=== PATIENT | female | born 1945 | race Caucasian/White ===

== ENCOUNTER → 2019-07-03 | Outpatient (CLI) | payer MEDICARE ==
[~2019-07-03] MED LIST: ACET500T64 PO; ALPR0.5T7 PO; ASPI325T17 PO; CALC400T6 PO; CAND4TAB3 PO; CHOL2000 PO; CHOL20002 PO; CYAN50002 PO; DABI150C PO; DICL75TA3 PO; DOCU-180 PO; ENOX100S5 SQ; GABAPENTIN PO; IRBE75TA10 PO; LISI5TAB7 PO; MAGN500C9 PO; METF500T17 PO; METO-93 PO; METO25TA35 PO; MULT1TAB9 PO; NIAC500T4 PO; NIAC500T9 PO; OMEG500C3 PO; OXYB10TA2 PO; OXYB15TA PO; OXYB5TAB10 PO; OXYC5TAB3 PO; RIVA20TA PO; SERT25TA3 PO; SIMV40TA3 PO
[2019-07-03 10:48] LABS: BASOPHILS # (AUTO) 0.02 x10^3/uL (0-0.1); BASOPHILS % (AUTO) 0 % (0-1); EOSINOPHILS # (AUTO) 0.17 x10^3/uL (0-0.4); EOSINOPHILS % (AUTO) 3 % (1-7); LYMPHOCYTES # (AUTO) 1.75 x10^3/uL (1-3.4); LYMPHOCYTES % (AUTO) 27 % (22-44); MD NO; MEAN CORPUSCULAR HEMOGLOBIN 30.9 pg (27.0-34.8); MEAN CORPUSCULAR HGB CONC 33.3 g/dL (32.4-35.8); MEAN CORPUSCULAR VOLUME 92.8 fL (80-100); MEAN PLATELET VOLUME 8.4 fL (7.4-10.4); MONOCYTES # (AUTO) 0.46 x10^3/uL (0.2-0.8); MONOCYTES % (AUTO) 7 % (2-9); NEUTROPHILS # (AUTO) 4.03 x10^3/uL (1.8-6.8); NEUTROPHILS % (AUTO) 63 % (42-75); PLATELET COUNT 324 x10^3/uL (130-400); RED BLOOD COUNT 4.71 x10^6/uL (3.82-5.3); RED CELL DISTRIBUTION WIDTH 13.1 % (9.6-15.2)
[2019-07-03 10:58] LABS: ALANINE AMINOTRANSFERASE 14 U/L (12-78); ALBUMIN 3.7 g/dL (3.4-5.0); ANION GAP 6 mmol/L (5-15); CALCIUM 8.8 mg/dL (8.5-10.1); CHLORIDE 111 mmol/L (98-107); CREATININE 0.98 mg/dL (0.55-1.02)
[2019-07-03 11:00] LABS: ALKALINE PHOSPHATASE 84 U/L (45-117); BILIRUBIN,TOTAL 0.6 mg/dL (0.2-1.0); TOTAL PROTEIN 6.8 g/dL (6.4-8.2)
== END | disposition home or self-care (01) ==
LOC: STAR 09:40
PROVIDERS: ATTEND Orthopaedic Surgery
DX: Z01.818 Encounter for other preprocedural examination (principal); M17.11 Unilateral primary osteoarthritis, right knee
CPT/HCPCS: 36415; 80053; 85025; 87081; 93005

== ENCOUNTER 2019-07-15 09:27 | Day surgery (SDC) | payer MEDICARE ==
[~2019-07-15] VITALS: Ht 175.3 cm; Wt 120.1 kg
[~2019-07-15 09:27] MED LIST changes: -IRBE75TA10 PO; +IRBE75TA6 PO; +NIAC-17 PO; -NIAC500T4 PO; -OXYB10TA2 PO; +OXYB10TA26 PO; -OXYB15TA PO; +OXYB15TA18 PO; +SIMV40TA20 PO; -SIMV40TA3 PO
[2019-07-15] MEDS ORDERED: LACTATED RINGERS 1,000 ML IV SCH (09:49)
[2019-07-15 09:53] VITALS: BP 122/80
[2019-07-15] MEDS ORDERED: ROPIvacaine/PF 0.2%, 20 ML ONE ×3 (09:55→10:35)
[2019-07-15] MEDS ORDERED: FENTANYL PF 250 MCG/5ML ONE ×2 (09:55→11:24)
[2019-07-15] MEDS ORDERED: PROPOFOL 50 ML ONE (09:56)
[2019-07-15] MEDS ORDERED: GABAPENTIN 300 MG CAPSULE PO ONE (10:30)
[2019-07-15] MEDS ORDERED: ACETAMINOPHEN 500 MG TABLET PO ONE (10:30)
[2019-07-15] MEDS ORDERED: EPINEPHRINE 1 MG/ML, 1ML ONE (10:35)
[2019-07-15] MEDS ORDERED: KETOROLAC 60 MG/2 ML ONE (10:35)
[2019-07-15] MEDS ORDERED: VANCOMYCIN 1,000 MG ONE (10:35)
[2019-07-15] MEDS ORDERED: TRANEXAMIC ACID 100 MG/ML, 10ML ONE (10:35)
[2019-07-15] MEDS ORDERED: PHENYLEPHRINE 10 MG/ML ONE (10:56)
[2019-07-15] MEDS ORDERED: HYDROmorphone 2 MG/ML, 1ML IVPush PRN (11:00)
[2019-07-15] MEDS ORDERED: HALOPERIDOL 5 MG/ML IV PRN (11:00)
[2019-07-15] MEDS ORDERED: PROMETHAZINE 25 MG/ML, 1ML IV PRN (11:00)
[2019-07-15] MEDS ORDERED: MORPHINE SULFATE 4 MG/ML, 1ML IVPush PRN (11:00)
[2019-07-15] MEDS ORDERED: LABETALOL 5MG/ML, 20ML IV PRN (11:00)
[2019-07-15] MEDS ORDERED: MEPERIDINE/PF 25MG/ML,1ML IVPush PRN (11:00)
[2019-07-15] MEDS ORDERED: OXYcodone 5 MG/5 ML ORAL.SOL UDC PO PRN (11:00)
[2019-07-15] MEDS ORDERED: ACETAMINOPHEN 325 MG TABLET PO PRN (11:00)
[2019-07-15] MEDS ORDERED: hydrALAzine 20 MG/ML, 1ML IV PRN (11:00)
[2019-07-15] MEDS ORDERED: CEFAZOLIN 1,000 MG ONE (11:23)
[2019-07-15] MEDS ORDERED: ROCURONIUM 10MG/ML,5ML ONE (11:23)
[2019-07-15] MEDS ORDERED: NEOSTIGMINE 1 MG/ML, 10ML ONE (11:23)
[2019-07-15] MEDS ORDERED: PROPOFOL 10 MG/ML, 20ML ONE (11:23)
[2019-07-15] MEDS ORDERED: ONDANSETRON 2MG/ML, 2ML ONE (11:23)
[2019-07-15] MEDS ORDERED: DEXAMETHASONE 4 MG/ML, 1ML ONE (11:23)
[2019-07-15] MEDS ORDERED: GLYCOPYRROLATE 0.2MG/1ML, 5ML ONE (11:23)
[2019-07-15] MEDS: SODIUM CHLORIDE 0.9% 1,000 ML IV SCH (12:23)
[2019-07-15] MEDS ORDERED: BISACODYL 10 MG SUPP PR PRN (12:30)
[2019-07-15] MEDS ORDERED: PROMETHAZINE 12.5 MG SUPP PR PRN (12:30)
[2019-07-15] MEDS: KETOROLAC 30 MG/1 ML IV SCH ×2 (12:30→21:44)
[2019-07-15] MEDS ORDERED: ALUMINUM/MAG/SIMETHICONE 30 ML UDC PO PRN (12:30)
[2019-07-15] MEDS ORDERED: DIPHENHYDRAMINE 25 MG CAPSULE PO PRN (12:30)
[2019-07-15] MEDS ORDERED: ONDANSETRON 4 MG TABLET PO PRN (12:30)
[2019-07-15] MEDS ORDERED: SENNA/DOCUSATE TABLET PO PRN (12:30)
[2019-07-15] MEDS ORDERED: POLYETHYLENE GLYCOL 17 GM PACKET PO PRN (12:30)
[2019-07-15] MEDS ORDERED: PSYLLIUM PACKET PO PRN (12:30)
[2019-07-15] MEDS ORDERED: DIAZEPAM 5 MG TABLET PO PRN (12:30)
[2019-07-15] MEDS ORDERED: ZOLPIDEM 5MG TABLET PO PRN (12:30)
[2019-07-15] MEDS ORDERED: ONDANSETRON 2MG/ML, 2ML IV PRN (12:30)
[2019-07-15] MEDS ORDERED: HYDROmorphone 1 MG/ML, 1ML INJ IVPush PRN (12:30)
[2019-07-15] MEDS ORDERED: MAGNESIUM HYDROXIDE 8%, 30ML UDC PO PRN (12:30)
[2019-07-15] MEDS: ACETAMINOPHEN 500 MG TABLET PO SCH ×3 (12:30→23:36)
[2019-07-15] MEDS ORDERED: FENTANYL PF 100 MCG/2ML ONE (12:44)
[2019-07-15] MEDS ORDERED: OXYcodone 5 MG/5 ML ORAL.SOL UDC ONE (12:44)
[2019-07-15] MEDS: FENTANYL PF 100 MCG/2ML IV PRN ×2 (12:46→13:00)
[2019-07-15] MEDS ORDERED: TRANEXAMIC ACID 1,000 MG in SODIUM CHLORIDE 0.9% 100 ML IVPB ONE (13:00)
[2019-07-15] MEDS: CALCIUM/VITAMIN D3 250-125 TABLET PO SCH (17:02)
[2019-07-15] MEDS: FERROUS SULFATE 325 MG TABLET PO SCH (17:02)
[2019-07-15] MEDS: INSULIN REGULAR 100 UNITS/ML, 3ML VIAL SQ-INSULIN SCH ×2 (17:37→21:56)
[2019-07-15] MEDS: CEFAZOLIN PMX 2GM/50ML 50 ML IVPB SCH (17:38)
[2019-07-15] MEDS: OXYcodone IR 5MG TABLET PO PRN ×2 (17:48→21:45)
[2019-07-15 19:47] VITALS: BP 116/71
[2019-07-15] MEDS: OXYBUTYNIN CHLORIDE 15 MG PO SCH (21:00)
[2019-07-15] MEDS ORDERED: SIMVASTATIN 40 MG TABLET PO SCH (21:00)
[2019-07-15] MEDS ORDERED: METOPROLOL TARTRATE 25 MG TAB PO SCH (21:00)
[2019-07-15] MEDS: DOCUSATE 100 MG CAPSULE PO SCH (21:44)
[2019-07-15 23:25] VITALS: BP 110/64
[2019-07-16] MEDS: SODIUM CHLORIDE 0.9% 1,000 ML IV SCH (01:43)
[2019-07-16] MEDS: OXYcodone IR 5MG TABLET PO PRN ×2 (02:21→06:36)
[2019-07-16] MEDS: CEFAZOLIN PMX 2GM/50ML 50 ML IVPB SCH (02:21)
[2019-07-16 03:21] VITALS: BP 110/68
[2019-07-16] MEDS: KETOROLAC 30 MG/1 ML IV SCH (05:49)
[2019-07-16] MEDS: RIVAROXABAN 10 MG TABLET PO SCH ×2 (05:50→08:08)
[2019-07-16] MEDS: ACETAMINOPHEN 500 MG TABLET PO SCH (05:50)
[2019-07-16] MEDS ORDERED: DEXAMETHASONE 4 MG/ML, 1ML IVPush SCH (06:00)
[2019-07-16] MEDS: INSULIN REGULAR 100 UNITS/ML, 3ML VIAL SQ-INSULIN SCH (07:00)
[2019-07-16 07:57] VITALS: BP 123/8
[2019-07-16] MEDS: OXYBUTYNIN CHLORIDE 15 MG PO SCH (08:07)
[2019-07-16] MEDS: DOCUSATE 100 MG CAPSULE PO SCH (08:07)
[2019-07-16] MEDS: CALCIUM/VITAMIN D3 250-125 TABLET PO SCH (08:07)
[2019-07-16] MEDS: FERROUS SULFATE 325 MG TABLET PO SCH (08:07)
[2019-07-16] MEDS ORDERED: ASCORBIC ACID 500 MG TABLET PO SCH (09:00)
[2019-07-16] MEDS ORDERED: metFORMIN 500 MG TABLET PO SCH (09:00)
[2019-07-16] MEDS ORDERED: CANDESARTAN CILEXETIL PO SCH (09:00)
[2019-07-16] MEDS ORDERED: MULTIVITAMINS/MINERALS TABLET PO SCH (09:00)
[2019-07-16] MEDS ORDERED: SERTRALINE 50MG TABLET PO SCH (09:00)
== END 2019-07-16 10:11 | disposition home or self-care (01) ==
LOC: OUT 09:27 → UNDOADMOB 12:23 → ORIP 12:23 → 4NE 14:00 → DCLOUNGE 07-16 10:02 → 4NE 07-16 10:02 → OUT 07-16 10:11 → UNDODISOB 07-16 10:11
PROVIDERS: ATTEND Orthopaedic Surgery
DX: M17.11 Unilateral primary osteoarthritis, right knee (principal); M21.061 Valgus deformity, not elsewhere classified, right knee; M25.761 Osteophyte, right knee; I48.91 Unspecified atrial fibrillation; E11.9 Type 2 diabetes mellitus without complications; I10 Essential (primary) hypertension; E78.5 Hyperlipidemia, unspecified; Z79.84 Long term (current) use of oral hypoglycemic drugs; Z79.01 Long term (current) use of anticoagulants; Z79.899 Other long term (current) drug therapy; Z86.73 Personal history of transient ischemic attack (TIA), and cerebral infarction without residual deficits; Z88.8 Allergy status to other drugs, medicaments and biological substances; Z82.3 Family history of stroke
CPT/HCPCS: 27447; 36415; 64447; 73560; 82962; 85014; 85018; 96365; 96366; 96372; 96375; 96376; 97110; 97161; 97165; C1713; C1776; G0378; J0171; J0690; J1100; J1815; J1885; J2370; J2405; J2704; J2710; J2795; J3010; J7030; J7120; J3370

== ENCOUNTER → 2020-05-11 | Outpatient (CLI) | payer MEDICARE | END | disposition home or self-care (01) | LOC: CVU 10:43 | PROVIDERS: ATTEND Internal Medicine Cardiovascular Disease | DX: I08.8 Other rheumatic multiple valve diseases (principal); I48.0 Paroxysmal atrial fibrillation | CPT/HCPCS: 93306 ==